=== PATIENT | female | born 1945 | race Caucasian/White ===

== ENCOUNTER 2023-11-24 13:15 | Emergency (ER) | payer MEDICARE, SELFPAY ==
[2023-11-24 13:33] VITALS: BP 153/61; PULSE 78; RESP 16; TEMP 36.6; O2SAT 95
--- NOTE | 2023-11-24 13:40 | ED.URI ---
HPI - URI/Sore Throat General Chief Complaint: Upper Respiratory Infection Stated Complaint: sore throat History of Present Illness HPI Narrative: patient is a 78-year-old female, without significant past medical history, presents to [facility] with 5-6 day history of URI symptoms, including sore throat, nasal congestion rhinorrhea with a slight cough, without associated fevers or chills. She just returned home from vacationing [place] of the country. She denies associated chest pain shortness of breath, she has no abdominal pain, nausea vomiting or diarrhea. She denies any additional associated symptoms or modifying factors. Related Data Home Medications Medication Instructions Recorded Confirmed latanoprost 0.005 % eye drops 1 drp EACH EYE DAILY 11/24/23 11/24/23 Allergies Allergy/AdvReac Type Severity Reaction Status Date / Time No Known Allergies Allergy Verified 11/24/23 13:28 Review of Systems ENT: Comments: Refer to HPI Exam Const: General: healthy appearing and no acute distress Nutritional Appearance: well nourished Orientation/consciousness: patient oriented x3 Limitations: no limitations HENMT: Head: normal to inspection Ears: external ears normal and TM abnormal bulging, erythematous, with fluid behind the TM bilateral and other Face/Nose/Sinus: Normal external nose present and Normal nares present Face and sinus: normal facial exam and sinuses nontender Mouth: Yes lip normal, Yes moist mucous membranes and Yes Abnormal oral and palatal mucosa present erythematous ( posterior pharyngeal erythema, no exudates no trismus) Teeth and gingiva: dentition normal Throat: uvula midline Other: no perforation noted, both TMs are bulging. Erythematous with a purulent effusion. The right is slightly worse than the left. Eyes: Conjunctivae: conjunctivae normal Pupils: Equal, round and reactive pupils present EOM: EOMs intact bilaterally Neck: Neck: normal visual inspection, no lymphadenopathy and no meningeal signs Resp: Effort & Inspection: normal respiratory effort Auscultation: clear to auscultation bilaterally Cardio: Rate: regular rate Rhythm: regular rhythm Skin: General skin exam: normal color Rashes: no rashes Neuro: General: patient oriented x3, moves all extremities, no meningeal signs, no focal motor deficits and CN's II-XI intact bilaterally Cranial nerves: Yes Nystagmus not present Speech: normal speech Extrem: General: normal to inspection and no clubbing, cyanosis or edema Course Course Emergency Course: Patient has bilateral TM effusions, acute otitis media noted. Will treat with Augmentin, Flonase is added for sinus symptom relief. She is encouraged to take Delsym [id number] for cough suppression at night. Follow up PCP without fail in 3 days if symptoms are improving and following antibiotic completion otherwise to ensure she is cleared her infection Level of Care: Express Care Visit ([id number]) Vital Signs Vital signs: Vital Signs Temperature 36.6 C 11/24/23 13:33 Pulse Rate 78 11/24/23 13:33 Respiratory Rate 16 11/24/23 13:33 Blood Pressure 153/61 H 11/24/23 13:33 Pulse Oximetry 95 11/24/23 13:33 Oxygen Delivery Room Air 11/24/23 13:33 Temperature 36.6 C 11/24/23 13:33 Pulse Rate 78 11/24/23 13:33 Respiratory Rate 16 11/24/23 13:33 Blood Pressure 153/61 H 11/24/23 13:33 Pulse Oximetry 95 11/24/23 13:33 Oxygen Delivery Room Air 11/24/23 13:33 MDM - URI/Sore Throat MDM Narrative Medical decision making narrative: COVID negative, will treat with antibiotics and Flonase Differential Diagnosis Differential diagnosis: Likely upper respiratory infection, otitis media, sinusitis and viral infection Lab Data Labs: Lab Results 11/24/23 Range/Units 13:53 POC SARS CoV-2 Ag Negative (Negative) Discharge Plan Discharge Clinical Impression: Bilateral acute suppurative otitis media Qualifie
[2023-11-24 13:57] LABS: EDCOVIDSCREEN Negative (Negative)
== END 2023-11-24 14:05 | disposition home or self-care (01) ==
PROVIDERS: Emergency Provider Nurse Practitioner Family
DX: H66.003 Acute suppurative otitis media without spontaneous rupture of ear drum, bilateral (principal); J01.10 Acute frontal sinusitis, unspecified; Z20.822 Contact with and (suspected) exposure to COVID-19
CPT/HCPCS: 87635; 99203; G0463

== ENCOUNTER 2023-12-06 13:52 | Emergency (ER) | payer MEDICARE, SELFPAY ==
[2023-12-06 14:03] VITALS: BP 176/56; PULSE 60; RESP 18; TEMP 36.7; O2SAT 100
[2023-12-06 14:04] VITALS: BP 176/56; PULSE 60; RESP 18; TEMP 36.7; O2SAT 100
--- NOTE | 2023-12-06 14:25 | ED.EAR ---
HPI - Ear Problem General Chief complaint: Ear Stated complaint: Both Ears Clogged Time Seen by Provider: 12/06/23 14:14 Source: patient, RN notes reviewed and old records reviewed Mode of arrival: ambulatory Limitations: no limitations History of Present Illness HPI Narrative: Patient presents today complaining of muffling to the her bilateral ears that started approximately 2 and half weeks ago. She was seen at [facility] on 11/24/2023 for same complaint, diagnosed with bilateral otitis media, and prescribed Flonase and Augmentin. She has finished the Augmentin without relief of symptoms. She has been occasionally using the Flonase as well as saline nasal spray without relief. She is concerned because she is supposed to travel again in 3 weeks on a plane. Related Data Home Medications Medication Instructions Recorded Confirmed latanoprost 0.005 % eye drops 1 drp EACH EYE DAILY 11/24/23 12/06/23 Allergies Allergy/AdvReac Type Severity Reaction Status Date / Time No Known Allergies Allergy Verified 12/06/23 14:03 Review of Systems Review of Systems: CONSTITUTIONAL: Denies body aches, fever, chills, or sweats. EYES: Denies visual changes, redness, or discharge. ENT: Denies rhinorrhea, congestion, sore throat, or otalgia.+ bilateral ear muffling CARDIOVASCULAR: Denies chest pain, palpitations, or edema. RESPIRATORY: Denies cough or dyspnea. GASTROINTESTINAL: Denies abdominal pain, nausea, vomiting, or diarrhea. GENITOURINARY: Denies dysuria or hematuria. SKIN: Denies rash, itching, or wounds. MUSCULOSKELETAL: Denies back pain, joint pain, or myalgia. NEUROLOGIC: Denies headache, numbness, tingling, or weakness. PSYCH: Denies depression or anxiety. PMFSH Comments At time of signature, I have reviewed and agree with nursing past medical, surgical, social and family history unless otherwise noted. Please see nursing chart for further information. There is no relevant family history pertinent to the presenting complaint Exam Narrative: GENERAL: Well-appearing, well-nourished, and in no acute distress. HEAD: Normocephalic, atraumatic. EYES: EOMI. No redness or drainage. Conjunctivae normal. ENT: Mucous membranes pink and moist. Nares clear. No rhinorrhea. Bilateral middle ear effusions, right greater than left without evidence of bacterial infection. Throat normal. Uvula midline. NECK: Normal AROM. CHEST: No respiratory distress. EXTREMITIES: Normal range of motion. No edema. SKIN: Warm, dry, no rash. Capillary refill normal. Normal skin turgor. NEURO: No focal deficits. Alert and oriented x3. Gait steady. PSYCH: Normal affect. No signs of depression or anxiety. Course Course Level of Care: Express Care Visit Vital Signs Vital signs: Vital Signs Temperature 98.1 F 12/06/23 14:03 Pulse Rate 60 12/06/23 14:03 Respiratory Rate 18 12/06/23 14:03 Blood Pressure 176/56 H 12/06/23 14:03 Pulse Oximetry 100 12/06/23 14:03 Oxygen Delivery Room Air 12/06/23 14:03 Temperature 98.1 F 12/06/23 14:04 Pulse Rate 60 12/06/23 14:04 Respiratory Rate 18 12/06/23 14:04 Blood Pressure 176/56 H 12/06/23 14:04 Pulse Oximetry 100 12/06/23 14:04 Oxygen Delivery Room Air 12/06/23 14:04 Reviewed Medical Decision Making MDM Narrative Medical decision making narrative: Prescription for prednisone sent to pharmacy. Recommend continuing Flonase and trying some Sudafed as well. Patient agrees with plan. Anticipatory guidance given. Differential Diagnosis Differential Diagnosis: Otitis media, otitis externa, ruptured TM, serous otitis, cerumen impaction Vital Signs Vital Signs: Vital Signs Temperature 98.1 F 12/06/23 14:03 Pulse Rate 60 12/06/23 14:03 Respiratory Rate 18 12/06/23 14:03 Blood Pressure 176/56 H 12/06/23 14:03 Pulse Oximetry 100 12/06/23 14:03 Oxygen Delivery Room Air 12/06/23 14:03 Temperature 98.1 F 12/06/23 14:04 P
== END 2023-12-06 14:34 | disposition home or self-care (01) ==
PROVIDERS: Emergency Provider Nurse Practitioner
DX: H65.03 Acute serous otitis media, bilateral (principal); M19.90 Unspecified osteoarthritis, unspecified site; H40.9 Unspecified glaucoma; F17.200 Nicotine dependence, unspecified, uncomplicated
CPT/HCPCS: 99213; G0463